=== PATIENT | male | born 1990 | race Caucasian/White ===

== ENCOUNTER 2018-03-26 10:04 | Emergency (ER) | payer OTHER ==
[~2018-03-26] VITALS: Ht 175.3 cm; Wt 73.7 kg
[2018-03-26 10:36] VITALS: BP 158/86; Ht 175.3 cm; Wt 73.7 kg
== END 2018-03-26 13:07 | disposition home or self-care (01) ==
LOC: ED 10:04
DX: S56.423A Laceration of extensor muscle, fascia and tendon of right middle finger at forearm level, initial encounter (principal); Q24.9 Congenital malformation of heart, unspecified; W26.8XXA Contact with other sharp object(s), not elsewhere classified, initial encounter; Y93.89 Activity, other specified; Y92.89 Other specified places as the place of occurrence of the external cause; Y99.8 Other external cause status
CPT/HCPCS: 90714; J2001

== ENCOUNTER 2019-11-06 12:19 | Emergency (ER) | payer OTHER ==
[~2019-11-06] VITALS: Ht 175.3 cm; Wt 73.0 kg
[2019-11-06 13:32] VITALS: Ht 175.3 cm; Wt 73.0 kg
[2019-11-06 14:25] LABS: BASOPHIL % 0.5 % (0-2); PLATELET COUNT 218 x10^3mcL (130-400); RED CELL DISTRIBUTION WIDTH 13.1 % (11.5-14.5)
[2019-11-06 14:32] LABS: CALCIUM 9.2 mg/dL (8.5-10.1); CARBON DIOXIDE 31.7 mmol/L (21-32); CHLORIDE SERUM 105 mmol/L (98-107); CREATININE SERUM 0.8 mg/dL (0.7-1.3); GFR1 > 60 mL/min; GLUCOSE SERUM 96 mg/dL (74-106); POTASSIUM SERUM 3.8 mmol/L (3.5-5.1); SODIUM SERUM 144 mmol/L (136-145)
[2019-11-06 14:36] LABS: ALBUMIN 4.3 g/dL (3.4-5.0); ALKALINE PHOSPHATASE 134 U/L (46-116); ALT/SGPT 34 U/L (16-63); AST/SGOT 19 U/L (15-37); BILIRUBIN TOTAL 0.4 mg/dL (0.20-1.00)
[2019-11-06 14:39] LABS: TOTAL PROTEIN, SERUM 8.6 g/dL (6.4-8.2)
[2019-11-06 14:43] LABS: microscopic required? NO
[2019-11-06 14:54] LABS: UA SPECIFIC GRAVITY 1.025 (1.005-1.035); urine erythrocyte NEGATIVE (NEGATIVE)
[2019-11-06 18:04] VITALS: BP 122/74
== END 2019-11-06 18:04 | disposition home or self-care (01) ==
LOC: ED 12:19
PROVIDERS: Emergency Medicine
DX: R10.813 Right lower quadrant abdominal tenderness (principal); Z98.890 Other specified postprocedural states
CPT/HCPCS: 36415